=== PATIENT | female | born 1970 | race Caucasian/White ===

== ENCOUNTER 2017-07-31 11:01 | Emergency (ER) | payer OTHER ==
[2017-07-31 11:02] VITALS: BMI 27.3
[2017-07-31 11:16] VITALS: BP 152/100; PULSE 90; RESP 16; TEMP 98.6; O2SAT 98
[2017-07-31] MEDS ORDERED: RABIES VACCINE 2.5 U PDR IM ONE (12:18)
[2017-07-31] MEDS ORDERED: Rabies Immune Globulin 150 INTLU/ML VIAL IM ONE ×2 (12:18→13:01)
--- NOTE | 2017-07-31 14:44 | C.PDOC ---
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 Patient reports no immunization record for cat and as per Hosier[employer] Pairer cat showed neurological symptoms. Patient has no pre-exposure vaccination for rabies. Patient denies fever, chills, nausea, vomiting or any other complaints at this time. Time Seen by Provider: 07/31/17 11:46 Chief Complaint (Nursing): Bite History Per: Patient History/Exam Limitations: no limitations Onset/Duration Of Symptoms: Hrs Current Symptoms Are (Timing): Still Present Location Of Injury: Left: Hand Past Medical History Reviewed: Historical Data, Nursing Documentation, Vital Signs Vital Signs: Last Vital Signs Temp 98.6 F 07/31/17 11:13 Pulse 90 07/31/17 11:13 Resp 16 07/31/17 11:13 BP 152/100 H 07/31/17 11:13 Pulse Ox 98 07/31/17 14:47 - Medical History PMH: HTN Surgical History: No Surg Hx - [facility] Procedures INJECT/INFUSE NEC (05/04/15) OTH UNILAT SALPINGO-OOPHORECTOMY (05/19/15) Family History: States: No Known Family Hx - Social History Hx Tobacco Use: No Hx Alcohol Use: No Hx Substance Use: No - Immunization History Hx Tetanus Toxoid Vaccination: Yes Hx Influenza Vaccination: No Hx Pneumococcal Vaccination: No Review Of Systems Except As Marked, All Systems Reviewed And Found Negative. Constitutional: Negative for: Fever, Chills Respiratory: Negative for: Cough, Shortness of Breath Gastrointestinal: Negative for: Nausea, Vomiting Musculoskeletal: Positive for: Hand Pain Skin: Negative for: Rash Neurological: Negative for: Weakness, Numbness Physical Exam - Physical Exam Appears: Non-toxic, No Acute Distress Skin: Warm, Dry, No Rash Head: Atraumatic, Normacephalic Eye(s): bilateral: Normal Inspection, EOMI Oral Mucosa: Moist Throat: Normal, No Erythema Neck: Normal ROM, Supple Extremity: Capillary Refill (<2 seconds), No Deformity, No Swelling, Other ( left second finger 2 scratch lopez no active bleeding ) Pulses: Left Radial: Normal, Right Radial: Normal Neurological/Psych: Oriented x3, Normal Motor, Normal Sensation ED Course And Treatment O2 Sat by Pulse Oximetry: 98 (RA) Pulse Ox Interpretation: Normal Disposition - Disposition Disposition: HOME/ ROUTINE Disposition Time: 12:15 Condition: GOOD Additional Instructions: Thank you for letting us take care of you today. Your provider was Dr. Decker. You were treated for a cat bite. The emergency medical care you received today was directed at your acute symptoms. If you were prescribed any medication, please fill it and take as directed. It may take several days for your symptoms to resolve. Return to the Emergency Department if your symptoms worsen, do not improve, or if you have any other problems. Please contact your doctor or call one of the physicians/clinics you have been referred to that are listed on the Patient Visit Information form that is included in your discharge packet. Bring any paperwork you were given at discharge with you along with any medications you are taking to your follow up visit. Our treatment cannot replace ongoing medical care by a primary care provider (PCP) outside of the emergency department. Thank you for allowing the [facility] team to be part of your care today. Follow up in the emergency room in 3 days for the 2nd dose of the rabies vaccine series. Follow up with your doctor in 2 days for a wound check. Prescriptions: Clindamycin [Cleocin] 300 mg PO Q6 #28 cap Instructions: Rabies Vaccine (By injection), Rabies Immune Globulin (By injection), Rabies (ED) Forms: [employer] (Macedonian) - Clinical Impression Clinical Impression: Cat bite - Scribe Statement The provider has reviewed the documentation as recorded by the Yenibjhoana Moralez All medical record entries made by the Scribe were at my direction and personally dictated by me. I have reviewed the chart and agree that the record accurately reflects my personal performance of the history, physical exam, medical decision making, and the department course for this patient. I have also personally directed, reviewed, and agree with the discharge instructions and disposition.
== END 2017-07-31 13:26 | disposition home or self-care (01) ==
LOC: C.ER 11:01
DX: S61.251A Open bite of left index finger without damage to nail, initial encounter (principal); W55.01XA Bitten by cat, initial encounter; Y93.K9 Activity, other involving animal care; Y92.89 Other specified places as the place of occurrence of the external cause; Y99.0 Civilian activity done for income or pay

== ENCOUNTER 2017-08-03 08:35 | Emergency (ER) | payer OTHER ==
[2017-08-03 08:35] VITALS: BMI 27.3
[2017-08-03 08:40] VITALS: BP 138/85; PULSE 92; RESP 18; TEMP 98.3; O2SAT 100
[2017-08-03] MEDS ORDERED: RABIES VACCINE 2.5 U PDR IM ONE (09:00)
--- NOTE | 2017-08-03 09:04 | C.PDOC ---
History Of Present Illness 46 yr old female presents to the ER for follow up 2nd dose of rabies vaccination. Patient states she was bit by a stray cat. Patient is compliant with clindamycin as prescribed. Patient denies new onset of fever, chills, chest pain, SOB, nausea, vomiting, weakness or numbness. Time Seen by Provider: 08/03/17 08:53 Chief Complaint (Nursing): Rabies Vaccine Series History Per: Patient History/Exam Limitations: no limitations Onset/Duration Of Symptoms: Days Past Medical History Reviewed: Historical Data, Nursing Documentation, Vital Signs Vital Signs: Last Vital Signs Temp 98.3 F 08/03/17 08:38 Pulse 92 H 08/03/17 08:38 Resp 18 08/03/17 08:38 BP 138/85 08/03/17 08:38 Pulse Ox 100 08/03/17 09:05 - Medical History PMH: HTN - [facility] Procedures INJECT/INFUSE NEC (05/04/15) OTH UNILAT SALPINGO-OOPHORECTOMY (05/19/15) Family History: States: No Known Family Hx - Social History Hx Tobacco Use: No Hx Alcohol Use: No Hx Substance Use: No - Immunization History Hx Tetanus Toxoid Vaccination: Yes Hx Influenza Vaccination: No Hx Pneumococcal Vaccination: No Review Of Systems Except As Marked, All Systems Reviewed And Found Negative. Constitutional: Negative for: Fever, Chills Cardiovascular: Negative for: Chest Pain Respiratory: Negative for: Shortness of Breath Gastrointestinal: Negative for: Nausea, Vomiting Neurological: Negative for: Weakness, Numbness Physical Exam - Physical Exam Appears: Non-toxic, No Acute Distress Skin: Warm, Dry, No Rash Head: Atraumatic, Normacephalic Oral Mucosa: Moist Extremity: Normal ROM, Capillary Refill (<2 sec), Other ((+) Right hand, 2nd digit, healing well. No redness. No swelling. ) Neurological/Psych: Oriented x3, Normal Speech, Normal Motor ED Course And Treatment O2 Sat by Pulse Oximetry: 100 (RA) Pulse Ox Interpretation: Normal Progress Note: Patient instructed to continue with Clindamycin as prescribed. Return for remaining rabies dose. Medical Decision Making Medical Decision Making: PLAN: * Rabies Vaccine IM Disposition Counseled Patient/Family Regarding: Diagnosis, Need For Followup - Disposition Referrals: Rg Guillen JD, MD [Medical Doctor] - Disposition: HOME/ ROUTINE Disposition Time: 09:01 Condition: STABLE Additional Instructions: PLEASE FOLLOW UP IN ED FOR FOR THE THIRD AND FORTH RABBIES VACCINATION ON AND 08/14/17. IF ANY CONCERNING SYMPTOMS DEVELOP RETURN TO ED. Instructions: Animal Bite (ED) Forms: [employer] (Japanese) - Clinical Impression Clinical Impression: Rabies vaccination, Cat bite - PA / REPAIRER PUMP / Resident Statement MD/DO has reviewed & agrees with the documentation as recorded. - Scribe Statement The provider has reviewed the documentation as recorded by the Scribe Ria Zamora All medical record entries made by the Yenibjhoana were at my direction and personally dictated by me. I have reviewed the chart and agree that the record accurately reflects my personal performance of the history, physical exam, medical decision making, and the department course for this patient. I have also personally directed, reviewed, and agree with the discharge instructions and disposition.
== END 2017-08-03 09:26 | disposition home or self-care (01) ==
LOC: C.ER 08:35
DX: Z23 Encounter for immunization (principal)

== ENCOUNTER 2017-08-07 09:00 | Emergency (ER) | payer OTHER ==
[2017-08-07 09:00] VITALS: BMI 27.3
[2017-08-07 09:11] VITALS: BP 130/65; TEMP 98.1
[2017-08-07] MEDS ORDERED: RABIES VACCINE 2.5 U PDR IM ONE (09:29)
--- NOTE | 2017-08-07 09:32 | C.PDOC ---
History Of Present Illness 46 y/o F presents for rabies immunization, 3rd in series. Patient with cat yaya 1 week ago, came to this ED. Currently denies any fever, chills, or any symptoms at all. She is on antibiotics, states will be finished probably today with them. She states bite wound on finger is now fully healed. Time Seen by Provider: 08/07/17 09:27 Chief Complaint (Nursing): Bite Past Medical History Vital Signs: Last Vital Signs Temp 98.1 F 08/07/17 09:09 Pulse 81 08/07/17 09:09 Resp 16 08/07/17 09:09 BP 130/65 08/07/17 09:09 Pulse Ox 100 08/07/17 09:32 - Medical History PMH: HTN Denies: Chronic Kidney Disease - [facility] Procedures INJECT/INFUSE NEC (05/04/15) OTH UNILAT SALPINGO-OOPHORECTOMY (05/19/15) Family History: States: No Known Family Hx - Social History Hx Tobacco Use: No Hx Alcohol Use: No Hx Substance Use: No - Immunization History Hx Tetanus Toxoid Vaccination: Yes Hx Influenza Vaccination: No Hx Pneumococcal Vaccination: No Review Of Systems Except As Marked, All Systems Reviewed And Found Negative. Constitutional: Negative for: Fever Respiratory: Negative for: Shortness of Breath Physical Exam - Physical Exam Appears: Non-toxic, No Acute Distress Skin: Other (scratch lopez on forearms, no erythema or discharge or swelling) Head: Normacephalic Respiratory: No Accessory Muscle Use Extremity: No Swelling Pulses: Left Radial: Normal, Right Radial: Normal Neurological/Psych: Normal Speech, Normal Cognition Gait: Steady ED Course And Treatment O2 Sat by Pulse Oximetry: 100 Medical Decision Making Medical Decision Making: Rabies immunization administered. Patient states she will return on day 14 for final injection. Instructed to return to ED for any fever, chills, rash, confusion, or any other problem. Disposition - Disposition Disposition: HOME/ ROUTINE Disposition Time: 09:31 Condition: STABLE Instructions: Rabies Vaccine (ED) Forms: [employer] (P[place]an) - Clinical Impression Clinical Impression: Rabies vaccination
[2017-08-07 09:49] VITALS: PULSE 75; RESP 18; O2SAT 98
== END 2017-08-07 09:49 | disposition home or self-care (01) ==
LOC: C.ER 09:00
DX: Z23 Encounter for immunization (principal)

== ENCOUNTER 2017-08-14 09:03 | Emergency (ER) | payer OTHER ==
[2017-08-14 09:03] VITALS: BMI 27.3
[2017-08-14 09:18] VITALS: TEMP 98.1; O2SAT 100
[2017-08-14] MEDS ORDERED: RABIES VACCINE 2.5 U PDR IM ONE (09:43)
--- NOTE | 2017-08-14 10:18 | C.PDOC ---
History Of Present Illness 46 year old female presents to the ED for 4th and final rabies vaccination. Patient started on rabies series for cat bite. She denies fever, pain, redness , discharge. Time Seen by Provider: 08/14/17 09:20 Chief Complaint (Nursing): Medical Clearance History Per: Patient History/Exam Limitations: no limitations Onset/Duration Of Symptoms: Days Current Symptoms Are (Timing): Better Reports Recently: Seen In ED Recent travel outside of the [place]: No Additional History Per: Prior Records Past Medical History Reviewed: Historical Data, Nursing Documentation, Vital Signs Vital Signs: Last Vital Signs Temp 98.1 F 08/14/17 09:15 Pulse 79 08/14/17 10:22 Resp 18 08/14/17 10:22 BP 122/80 08/14/17 10:22 Pulse Ox 100 08/14/17 11:12 - Medical History PMH: HTN - [facility] Procedures INJECT/INFUSE NEC (05/04/15) OTH UNILAT SALPINGO-OOPHORECTOMY (05/19/15) Family History: States: No Known Family Hx - Social History Hx Tobacco Use: No Hx Alcohol Use: No Hx Substance Use: No - Immunization History Hx Tetanus Toxoid Vaccination: Yes Hx Influenza Vaccination: No Hx Pneumococcal Vaccination: No Review Of Systems Except As Marked, All Systems Reviewed And Found Negative. Constitutional: Negative for: Fever, Chills Cardiovascular: Negative for: Chest Pain Respiratory: Negative for: Cough, Shortness of Breath Gastrointestinal: Negative for: Nausea, Vomiting, Abdominal Pain Skin: Negative for: Rash Neurological: Negative for: Weakness, Numbness Physical Exam - Physical Exam Appears: Non-toxic, No Acute Distress, Other (appears comfortable ) Skin: Warm, Dry, No Rash, Other (well healing cat bite to left hand, at second digit, no erythema or dischage. ) Oral Mucosa: Moist Cardiovascular: Rhythm Regular Respiratory: Normal Breath Sounds, No Rales, No Rhonchi, No Wheezing Pulses: Left Radial: Normal, Right Radial: Normal Neurological/Psych: Oriented x3 ED Course And Treatment O2 Sat by Pulse Oximetry: 100 (RA) Pulse Ox Interpretation: Normal Progress Note: Patient given given fourth and final rabies vaccination. She was instructed to follow up with PMD/clinic in 1-2 days, and understands she should return to ED if she develops any concerning symptoms. Disposition Counseled Patient/Family Regarding: Diagnosis, Need For Followup - Disposition Referrals: Rg Guillen JD, MD [Medical Doctor] - Disposition: HOME/ ROUTINE Disposition Time: 10:20 Condition: STABLE Additional Instructions: FOLLOW UP WITH YOUR DOCTOR IN 1-2 DAYS RETURN TO ER IF YOU HAVE ANY CONERNING SYMPTOMS Instructions: Rabies Vaccine (ED) Forms: [employer] (Vietnamese) Print Language: GEORGIAN - POA Present On Arrival: None - Clinical Impression Clinical Impression: Encounter for repeat administration of rabies vaccination - Scribe Statement The provider has reviewed the documentation as recorded by the Scribe Madison Petty All medical record entries made by the Yenibjhoana were at my direction and personally dictated by me. I have reviewed the chart and agree that the record accurately reflects my personal performance of the history, physical exam, medical decision making, and the department course for this patient. I have also personally directed, reviewed, and agree with the discharge instructions and disposition.
[2017-08-14 10:22] VITALS: BP 122/80; PULSE 79; RESP 18
== END 2017-08-14 10:22 | disposition home or self-care (01) ==
LOC: C.ER 09:03
DX: Z23 Encounter for immunization (principal)